=== PATIENT | male | born 1975 | race Caucasian/White ===

== ENCOUNTER 2025-02-24 08:39 | Day surgery (SDC) | payer OTHER ==
[2025-02-24 09:47] LABS: Glucose,Whole Blood 118 mg/dL (70-110)
[2025-02-24] MEDS: ACETAMINOPHEN TAB 500 MG TAB PO PRN (09:51)
[2025-02-24 09:54] LABS: HCT 43.3 % (39.6-50.0); MCH 30.7 pg (27.0-32.0); MCHC 34.6 g/dL (32.0-37.0); MCV 88.5 fL (80.0-97.0); Mean Platelet Volume 9.7 fL (9.5-12.2); Platelet Count 281 10*3/uL (140-440); RBC 4.89 10*6/uL (4.40-5.60); RDW 11.9 % (11.5-14.5); WBC 7.73 10*3/uL (4.50-10.00)
[2025-02-24] MEDS: LACTATED RINGERS 1,000 ML IV SCH (09:57)
[2025-02-24] MEDS: DEXAMETHASONE SOD PHOSPHATE 4 MG/ML 1 ML VIAL IVP STA (09:59)
[2025-02-24] MEDS: ONDANSETRON 4 MG/2 ML VIAL IVP STA (10:00)
[2025-02-24] MEDS: IV FLUID CONTINUATION 1,000 ML IV ONE (10:01)
[2025-02-24 10:09] LABS: African American GFR (CKD) >90 (>60 ml/min/1.73 sqM); Anion Gap 10 mmol/L; Blood Urea Nitrogen 15 mg/dL (9-20); Calcium 9.7 mg/dL (8.4-10.2); Carbon Dioxide 23 mmol/L (22-30); Chloride 106 mmol/L (98-107); Glucose 114 mg/dL (74-99); Non-African American GFR(CKD) >90 (>60 ml/min/1.73 sqM); Potassium 4.4 mmol/L (3.5-5.1); Sodium 139 mmol/L (137-145)
[2025-02-24] MEDS: HEPARIN SODIUM,PORCINE 5,000 UNIT/ML 1 ML VIAL SQ PRN (10:13)
--- NOTE | 2025-02-24 10:48 | P.PN ---
Progress Note - Text Progress Note Date: 02/24/25 The patient presents today for laparoscopic robotically assisted repair of umbilical hernia. The consent was updated.
[2025-02-24] MEDS ORDERED: NEOSTIGMINE 1 MG/ML 10 ML VIAL ONE (10:59)
[2025-02-24] MEDS ORDERED: HYDROmorphone (PF) 1 MG/ML ONE (10:59)
[2025-02-24] MEDS ORDERED: KETAMINE HCL IN 0.9 % NACL 50 MG/5 ML SYRINGE ONE (10:59)
[2025-02-24] MEDS ORDERED: PHENYLEPHRINE 10 MG/ML VIAL ONE (10:59)
[2025-02-24] MEDS ORDERED: SUCCINYLCHOLINE CHLORIDE 200 MG/10 ML VIAL IV ONE (10:59)
[2025-02-24] MEDS ORDERED: LIDOCAINE 1% INJ 10MG/ML (20 ML MDV) ONE (10:59)
[2025-02-24] MEDS ORDERED: GLYCOPYRROLATE 0.2 MG/ML 2 ML VIAL ONE (10:59)
[2025-02-24] MEDS ORDERED: MIDAZOLAM 2 MG/2 ML VIAL ONE (10:59)
[2025-02-24] MEDS ORDERED: ROCURONIUM 10 MG/ML (5 ML VIAL) IV ONE (10:59)
[2025-02-24] MEDS ORDERED: fentaNYL (PF) 50 MCG/ML 2 ML AMP ONE (10:59)
[2025-02-24] MEDS ORDERED: PROPOFOL 10 MG/ML 20 ML VIAL IV ONE (10:59)
[2025-02-24] MEDS ORDERED: KETOROLAC 15 MG/ML 1 ML VIAL ONE (10:59)
[2025-02-24] MEDS: ceFAZolin 2 GM in DEXTROSE 5% IN WATER 50 ML IVPB PRN (11:02)
[2025-02-24] MEDS: LIDOCAINE 1%-EPI 1:100,000 20 ML VIAL SQ ONE (11:28)
--- NOTE | 2025-02-24 12:19 | P.OP ---
Date of Procedure: 02/24/25 Preoperative Diagnosis: Incarcerated umbilical hernia Postoperative Diagnosis: Incarcerated umbilical hernia Procedure(s) Performed: L laparoscopic robotic assisted repair of umbilical hernia Transversus abdominis plane block Anesthesia: JAZMYN Surgeon: José Miguel Ruiz Pathology: other (Abdomen) Condition: stable Disposition: PACU Description of Procedure: The patient was placed on the operating table in the supine position. He received general anesthesia. His abdomen was prepped and draped usual fashion. Using a 5 mm optical trocar under direct visualization the peritoneal cavity was entered in the left upper quadrant. The abdomen was then insufflated. The laparoscope was placed back into the perineal cavity. Next a 8 mm robotic trocar was placed in the left lower quadrant and a 12 mm robotic trocar was placed in the left lateral position. The original 5 mm trocar was exchanged for a 8 mm robotic trocar. The patient's placed in the left side up position. And the patient was docked docked the robot. A four-quadrant transversus abdominis plane block was performed with 1% local Xylocaine. The umbilical hernia was visualized. Using hook cautery the peritoneum over the umbilical hernia was excised. The incarcerated omentum was dissected free sent pathology. The fascial opening was repaired using 0V LOC suture. Next a piece of 11 cm round ventral light ST mesh was placed into the. Cavity and secured with 2 OV lock suture. The patient was undocked the robot. The needles were retrieved. The fascia of the 12 mm trocar site was closed with 0 Ethibond suture. Skin was closed interrupted 3-0 Monocryl suture. Dermabond dressings was applied. Patient top procedure well and was sent to recovery room stable condition.
[2025-02-24 12:21] VITALS: TEMP 97.1
[2025-02-24] MEDS: HYDROmorphone 0.5 MG/0.5 ML SYRINGE IVP PRN (12:51)
[2025-02-24] MEDS: IV FLUID CONTINUATION 500 ML IV ONE (13:39)
[2025-02-24 15:31] VITALS: BP 148/95; PULSE 66; RESP 18
== END 2025-02-24 15:20 | disposition home or self-care (01) ==
LOC: OR 08:39
PROVIDERS: ATTEND Surgery
DX: K42.0 Umbilical hernia with obstruction, without gangrene (principal); I10 Essential (primary) hypertension; G47.30 Sleep apnea, unspecified
CPT/HCPCS: 49592; S2900; 80048; 85027; 88302